=== PATIENT | male | born 1950 | race Hispanic/Latino ===

== ENCOUNTER 2022-11-27 22:42 | Emergency (ER) | payer OTHER, MEDICARE ==
[~2022-11-27] VITALS: Ht 167.6 cm; Wt 79.4 kg
[2022-11-28] MEDS ORDERED: 0.9%NACL 1000ML 1,000 ML IV ONE
[2022-11-28] MEDS ORDERED: ONDANSETRON 4MG INJ IVP ONE
[2022-11-28 00:03] LABS: APPEARANCE,URINE CLEAR (CLEAR); BILIRUBIN,URINE NEGATIVE (NEGATIVE); COLOR,URINE YELLOW (YELLOW); GLUCOSE, URINE (UA) NEGATIVE (NEGATIVE); KETONES,URINE NEGATIVE (NEGATIVE); LEUKOCYTE ESTERASE ,URINE NEGATIVE Leu/uL (NEGATIVE); NITRATE,URINE NEGATIVE (NEGATIVE); OCCULT BLOOD,URINE NEGATIVE (NEGATIVE); PROTEIN,URINE 20 mg/dL (NEGATIVE); UROBILINOGEN,URINE 0.2 mg/dL (0.2-1.0)
[2022-11-28 00:08] LABS: MUCUS,URINE RARE LPF (None Seen); RBC,URINE 0-1 /HPF (0-1); WBC,URINE 0-1 /HPF (0-1)
[2022-11-28 00:16] LABS: BASOPHILS % (AUTO) 0.2 % (0.0-5.0); EOSINOPHILS % (AUTO) 3.1 % (0.0-8.0); HEMATOCRIT 40.9 % (42-54); LYMPHOCYTES % (AUTO) 24.2 % (21.0-51.0); MEAN CORPUSCULAR HEMOGLOBIN 32.3 pg (27.0-33.0); MEAN CORPUSCULAR HGB CONC 33.3 g/dL (32.0-36.0); MEAN CORPUSCULAR VOLUME 97.1 fL (79-99); MONOCYTES % (AUTO) 11.7 % (3.0-13.0); NEUTROPHILS % (AUTO) 60.6 % (40.0-77.0); PLATELET COUNT (AUTO) 147 K/uL (130-400); RED BLOOD CELL COUNT(AUTO) 4.21 MIL/uL (4.50-6.20); RED CELL DISTRIBUTION WIDTH 13.1 % (11.0-15.5); WHITE BLOOD COUNT (AUTO) 5.5 K/uL (4.8-10.8)
[2022-11-28 00:31] LABS: POTASSIUM 3.4 mmol/L (3.5-5.1)
[2022-11-28 00:35] LABS: ALBUMIN 3.9 g/dL (3.5-5.0)
[2022-11-28] MEDS ORDERED: IOHEXOL-350 75 ML VIAL IV ONE (01:28)
[2022-11-28 03:22] VITALS: BP 142/87
== END 2022-11-28 03:24 | disposition home or self-care (01) ==
LOC: EDH 22:42
DX: K44.9 Diaphragmatic hernia without obstruction or gangrene (principal); K57.30 Diverticulosis of large intestine without perforation or abscess without bleeding; R11.0 Nausea
CPT/HCPCS: 99285; 74177; 71045; 84484; 80053; 83690; 85025; 83605; 81001; 36415; 93005; 96374; 96361; J7030; J2405; Q9967